=== PATIENT | male | born 1985 | race African-American/Black ===

== ENCOUNTER 2019-12-14 09:02 | Emergency (ER) | payer OTHER ==
[~2019-12-14] VITALS: Ht 167.6 cm; Wt 82.0 kg
[2019-12-14 09:29] VITALS: BP 181/99
--- NOTE | 2019-12-14 09:30 | PHYS DOC ---
General Adult EDM: Chief Complaint: LACERATION/AVULSION HPI: HPI: Patient is a 34 year old presented to the ER due to right 5th finger injury that he sustained from work. Patient is working for [employer]. He was picking up a bag of trash inside the trash car, somehow got hit right 5th finger caught in something. He was not aware of it, as he swung to throw the trash bag, he degloved the fingernail and the skin off of the tip of his right 5th finger. He is not up to date on his tetanus vaccination. He denied any other injury. He was taken to [facility] and then referred to the ER here for treatment. Review of Systems: Review of Systems: Constitutional: Denies fever or chills. [] Eyes: Denies change in visual acuity. [] HENT: Denies nasal congestion or sore throat. [] Respiratory: Denies cough or shortness of breath. [] Cardiovascular: Denies chest pain or edema. [] GI: Denies abdominal pain, nausea, vomiting, bloody stools or diarrhea. [] : Denies dysuria. [] Musculoskeletal: Denies back pain, positive for right 5th finger injury. Integument: Denies rash. [] Neurologic: Denies headache, focal weakness or sensory changes. [] Endocrine: Denies polyuria or polydipsia. [] Lymphatic: Denies swollen glands. [] Psychiatric: Denies depression or anxiety. [] Heart Score: Risk Factors: Risk Factors: DM, Current or recent (<one month) smoker, HTN, HLP, family history of CAD, obesity. Risk Scores: Score 0 - 3: 2.5% MACE over next 6 weeks - Discharge Home Score 4 - 6: 20.3% MACE over next 6 weeks - Admit for Clinical Observation Score 7 - 10: 72.7% MACE over next 6 weeks - Early Invasive Strategies Physical Exam: PE: Constitutional: Well developed, well nourished, no acute distress, non-toxic appearance. [] HENT: Normocephalic, atraumatic, bilateral external ears normal, oropharynx moist, no oral exudates, nose normal. [] Eyes: PERRLA, EOMI, conjunctiva normal, no discharge. [] Neck: Normal range of motion, no tenderness, supple, no stridor. [] Cardiovascular:Heart rate regular rhythm, no murmur [] Lungs & Thorax: Bilateral breath sounds clear to auscultation [] Abdomen: Bowel sounds normal, soft, no tenderness, no masses, no pulsatile masses. [] Skin: Warm, dry, no erythema, no rash. [] Back: No tenderness, no CVA tenderness. [] Extremities: degloving injury the distal phalanx of 5th digit. Fingernail and skin completely pulled off of 5th distal phalanx, There is 1.5 cm laceration on the pad of the right 5th digit, no bony exposure, no tendon laceration. bleeding stopped. Patient can flex and extend all joints of right 5th digit. Neurologic: Alert and oriented X 3, normal motor function, normal sensory function, no focal deficits noted. [] Psychologic: Affect normal, judgement normal, mood normal. [] Current Patient Data: Labs: Current Medications Medications (Trade) Dose Ordered Sig/Jm Route PRN Reason Start Time Stop Time Status Last Admin Dose Admin Diphtheria/ Tetanus/Acell Pertussis (ADACEL TDap SYRINGE) 0.5 ml ONCE ONCE VAX IM 12/14/19 10:00 12/14/19 10:01 DC 12/14/19 10:25 Bupivacaine HCl (Sensorcaine-Mpf 0.25%) 10 ml 1X ONCE IJ 12/14/19 10:00 12/14/19 10:01 DC 12/14/19 10:25 Cephalexin HCl (Keflex) 500 mg 1X ONCE PO 12/14/19 10:15 12/14/19 10:16 DC 12/14/19 10:24 Neomycin/ Polymyxin/ Bacitracin (Triple Antibiotic Ointment) 1 pkt 1X ONCE TP 12/14/19 13:15 12/14/19 13:16 DC 12/14/19 13:16 EKG: EKG: [] Radiology/Procedures: Radiology/Procedures: LACERATION PROCEDURE: LOCATION: TIP OF RIGHT 5TH FINGER ANESTHESIA: DIGITAL BLOCK WITH .25% MARCAINE WAS USED, WEBSPACE METHOD INJECTION.... LENGTH OF LACERATION: 1.5 CM MATERIAL USED: 4-0-NYLON Number OF Sutures: 4 Method: simple interruptus on skin, one layer. Patient tolerated procedure well. Course & Med Decision Making: Course & Med Decision Making Pertinent Labs and Imaging studies reviewed. (See chart for details) The wound was cleaned with betadine, irrigated with saline. The wound was sutured....An aluminum finger splint was applied to the injured finger and taina taped it to the 4th digit. Discussed with the HAND SURGEON AT [facility], DR. LUCIANO WHO REVIEWED THE XRAY, RECOMMENDED DISCHARGE HOME, WILL FOLLOW UP IN THE CLINIC THIS WEEK. Dragon Disclaimer: Dragon Disclaimer: This electronic medical record was generated, in whole or in part, using a voice recognition dictation system. Departure Departure Impression: Primary Impression: Closed fracture of tuft of distal phalanx of finger Additional Impression: Degloving injury of finger Disposition: HOME, SELF-CARE Condition: STABLE Referrals: UNKNOWN PCP NAME (PCP) Please call [facility] for follow up with the hand surgeon, Dr. Seun Carpio or Dr. Luciano within 1-2 days. The phone number is [phone]. Patient Instructions: Finger Fracture, Fingertip Laceration Scripts Naproxen Sodium (ANAPROX DS) 550 Mg Tablet 1 TAB PO BID PRN for PAIN for 15 Days, #30 TAB 0 Refills Prov: RICHY EPPS DO 12/14/19 Cephalexin (KEFLEX) 500 Mg Capsule 500 MG PO QID for 7 Days, #28 CAP Prov: RICHY EPPS DO 12/14/19 Justicifation of Admission Dx: Justifications for Admission: Justification of Admission Dx: N/A RICHY EPPS DO Dec 14, 2019 09:30
--- NOTE | 2019-12-14 09:43 | RAD ---
Examination: FINGER(S) RIGHT History: right 5th finger degloving injury. Pain. Comparison/Correlation: None Findings: Total 3 images of the right fifth digit were obtained. Comminuted displaced fractures involving the fifth digit distal phalangeal tuft region noted. Soft tissue swelling is notable. No radiopaque foreign bodies. Impression: Comminuted displaced distal fifth phalangeal tuft fractures. Electronically signed by: Anthony Morrow MD (12/14/2019 9:40 AM) [id number]
[2019-12-14] MEDS ORDERED: DIPH,PERTUSS(ACELL),TET VAC/PF 0.5 ML SYRINGE. VAX IM ONE (10:00)
[2019-12-14] MEDS ORDERED: BUPIVACAINE MPF 0.25% 10 ML VIAL. IJ ONE (10:00)
[2019-12-14] MEDS ORDERED: CEPHALEXIN 250 MG CAPSULE. PO ONE (10:15)
[2019-12-14] MEDS ORDERED: NEOMY/BACITR/POLYMYXIN OINT PACKET. TP ONE (13:15)
[2019-12-14] MEDS ORDERED: NAPR-682 PO (13:36)
[2019-12-14] MEDS ORDERED: CEPH-264 PO (13:36)
== END 2019-12-14 13:50 | disposition home or self-care (01) ==
LOC: ER 09:02
DX: S62.636A Displaced fracture of distal phalanx of right little finger, initial encounter for closed fracture (principal); W22.8XXA Striking against or struck by other objects, initial encounter; Y93.89 Activity, other specified; Y92.89 Other specified places as the place of occurrence of the external cause; Y99.0 Civilian activity done for income or pay
CPT/HCPCS: 12001; 73140; 90471; 90715; 99283; J3490